=== PATIENT | female | born 1975 | race Hispanic/Latino ===

== ENCOUNTER 2021-05-05 11:12 | Inpatient (IN) | payer OTHER ==
[~2021-05-05] VITALS: Ht 167.6 cm; Wt 76.2 kg
[2021-05-05 12:10] LABS: HEMOGLOBIN 8.7 g/dl (12.0-16.0); IMMATURE GRANULOCYTES 0.6 % (0.0-5.0); MEAN CELL VOLUME 83.3 fL CALC (80.0-100.0); MEAN CORPUSCULAR HGB 26.9 pG CALC (26.0-32.0); MEAN CORPUSCULAR HGB CONC 32.2 g/dL CAL (32.0-36.0); NEUT# 21.5 thou/uL (2.00-7.15); RED BLOOD COUNT 3.24 mill/uL (4.20-5.60); RED CELL DISTRI WIDTH 15.6 % (11.5-15.5)
[2021-05-05 12:20] LABS: ALBUMIN 2.4 g/dL (3.2-5.0); BILIRUBIN, TOTAL 0.3 mg/dL (0.0-1.4); CREATININE 1.6 mg/dL (0.5-1.0); POTASSIUM 3.2 mmol/l (3.5-5.1)
[2021-05-05 15:33] VITALS: BP 139/71
[2021-05-05 16:13] LABS: CREATININE 1.5 mg/dL (0.5-1.0); POTASSIUM 2.8 mmol/l (3.5-5.1)
[2021-05-05 19:00] VITALS: BP 99/56
[2021-05-06] VITALS (10 sets, daily range): BP systolic 121–171; BP diastolic 66–85
[2021-05-06 05:21] LABS: MEAN CELL VOLUME 86.6 fL CALC (80.0-100.0); MEAN CORPUSCULAR HGB 27.3 pG CALC (26.0-32.0); MEAN CORPUSCULAR HGB CONC 31.6 g/dL CAL (32.0-36.0); RED BLOOD COUNT 2.38 mill/uL (4.20-5.60); RED CELL DISTRI WIDTH 15.9 % (11.5-15.5)
[2021-05-06 05:24] LABS: CREATININE 1.5 mg/dL (0.5-1.0); MAGNESIUM 1.6 mg/dL (1.6-2.3); POTASSIUM 3.3 mmol/l (3.5-5.1)
[2021-05-06 05:38] LABS: HEMATOCRIT 20.6 % (37.0-47.0); HEMOGLOBIN 6.5 g/dl (12.0-16.0)
[2021-05-06] MEDS ORDERED: LANTUS100 UNIT SC (09:56)
[2021-05-06] MEDS ORDERED: HUMALOG100 UNIT/M SC (09:56)
[2021-05-07] VITALS (7 sets, daily range): BP systolic 149–196; BP diastolic 78–92
[2021-05-07 04:52] LABS: HEMATOCRIT 22.7 % (37.0-47.0); HEMOGLOBIN 7.3 g/dl (12.0-16.0); IMMATURE GRANULOCYTES 0.8 % (0.0-5.0); MEAN CELL VOLUME 82.8 fL CALC (80.0-100.0); MEAN CORPUSCULAR HGB 26.6 pG CALC (26.0-32.0); MEAN CORPUSCULAR HGB CONC 32.2 g/dL CAL (32.0-36.0); NEUT# 11.49 thou/uL (2.00-7.15); RED BLOOD COUNT 2.74 mill/uL (4.20-5.60)
[2021-05-07 05:18] LABS: CREATININE 1.2 mg/dL (0.5-1.0); POTASSIUM 3.2 mmol/l (3.5-5.1)
[2021-05-08] VITALS (7 sets, daily range): BP systolic 141–191; BP diastolic 66–91
[2021-05-08 05:26] LABS: HEMATOCRIT 24.1 % (37.0-47.0); HEMOGLOBIN 7.4 g/dl (12.0-16.0); MEAN CELL VOLUME 84.9 fL CALC (80.0-100.0); MEAN CORPUSCULAR HGB 26.1 pG CALC (26.0-32.0); MEAN CORPUSCULAR HGB CONC 30.7 g/dL CAL (32.0-36.0); RED BLOOD COUNT 2.84 mill/uL (4.20-5.60); RED CELL DISTRI WIDTH 15.9 % (11.5-15.5)
[2021-05-08 05:40] LABS: ANION GAP 9 (6-22 (CALC)); BUN 14 mg/dL (7-17); BUN/CREATININE RATIO 15 (12-20 (CALC)); CARBON DIOXIDE 17 mmol/l (22-30); CHLORIDE 111 mmol/l (95-108); GFR 60 ML/MIN (>=60 (CALC)); GFR FOR AFR.AMER. > 60 ML/MIN (>=60 (CALC)); MAGNESIUM 1.6 mg/dL (1.6-2.3); POTASSIUM 2.9 mmol/l (3.5-5.1); SODIUM 134 mmol/l (137-146)
[2021-05-09] VITALS (12 sets, daily range): BP systolic 105–193; BP diastolic 56–93
[2021-05-09 06:26] LABS: ANION GAP 8 (6-22 (CALC)); BUN 16 mg/dL (7-17); BUN/CREATININE RATIO 15 (12-20 (CALC)); CARBON DIOXIDE 17 mmol/l (22-30); CHLORIDE 111 mmol/l (95-108); GFR 60 ML/MIN (>=60 (CALC)); GFR FOR AFR.AMER. > 60 ML/MIN (>=60 (CALC)); MAGNESIUM 1.9 mg/dL (1.6-2.3); SODIUM 132 mmol/l (137-146)
[2021-05-09 06:38] LABS: POTASSIUM 3.5 mmol/l (3.5-5.1)
[2021-05-09 06:48] LABS: HEMATOCRIT 23.9 % (37.0-47.0); HEMOGLOBIN 7.4 g/dl (12.0-16.0); MEAN CELL VOLUME 85.1 fL CALC (80.0-100.0); MEAN CORPUSCULAR HGB 26.3 pG CALC (26.0-32.0); RED BLOOD COUNT 2.81 mill/uL (4.20-5.60)
[2021-05-10] VITALS (13 sets, daily range): BP systolic 111–190; BP diastolic 63–85
[2021-05-10 05:03] LABS: HEMATOCRIT 22.7 % (37.0-47.0); HEMOGLOBIN 7.1 g/dl (12.0-16.0); MEAN CELL VOLUME 84.1 fL CALC (80.0-100.0); MEAN CORPUSCULAR HGB 26.3 pG CALC (26.0-32.0); MEAN CORPUSCULAR HGB CONC 31.3 g/dL CAL (32.0-36.0); RED BLOOD COUNT 2.7 mill/uL (4.20-5.60); RED CELL DISTRI WIDTH 15.9 % (11.5-15.5)
[2021-05-10 05:14] LABS: CREATININE 1.2 mg/dL (0.5-1.0); MAGNESIUM 1.9 mg/dL (1.6-2.3); POTASSIUM 3.4 mmol/l (3.5-5.1)
[2021-05-11] VITALS (9 sets, daily range): BP systolic 141–185; BP diastolic 72–94
[2021-05-11 05:42] LABS: HEMATOCRIT 22.5 % (37.0-47.0); HEMOGLOBIN 7.1 g/dl (12.0-16.0); MEAN CELL VOLUME 83.3 fL CALC (80.0-100.0); MEAN CORPUSCULAR HGB 26.3 pG CALC (26.0-32.0); MEAN CORPUSCULAR HGB CONC 31.6 g/dL CAL (32.0-36.0); RED BLOOD COUNT 2.7 mill/uL (4.20-5.60); RED CELL DISTRI WIDTH 16.2 % (11.5-15.5)
[2021-05-11 06:17] LABS: CREATININE 1.2 mg/dL (0.5-1.0); MAGNESIUM 1.9 mg/dL (1.6-2.3); POTASSIUM 3.7 mmol/l (3.5-5.1)
[2021-05-12] VITALS (10 sets, daily range): BP systolic 131–193; BP diastolic 70–90
[2021-05-12 05:22] LABS: HEMATOCRIT 20.3 % (37.0-47.0); MEAN CELL VOLUME 86.4 fL CALC (80.0-100.0); MEAN CORPUSCULAR HGB 27.2 pG CALC (26.0-32.0); MEAN CORPUSCULAR HGB CONC 31.5 g/dL CAL (32.0-36.0); RED BLOOD COUNT 2.35 mill/uL (4.20-5.60); RED CELL DISTRI WIDTH 16.4 % (11.5-15.5)
[2021-05-12 05:33] LABS: HEMOGLOBIN 6.4 g/dl (12.0-16.0)
[2021-05-12 05:49] LABS: ANION GAP 7 (6-22 (CALC)); BUN 16 mg/dL (7-17); BUN/CREATININE RATIO 14 (12-20 (CALC)); CARBON DIOXIDE 19 mmol/l (22-30); CHLORIDE 111 mmol/l (95-108); CREATININE 1.1 mg/dL (0.5-1.0); GFR 54 ML/MIN (>=60 (CALC)); GFR FOR AFR.AMER. > 60 ML/MIN (>=60 (CALC)); POTASSIUM 3.7 mmol/l (3.5-5.1); SODIUM 134 mmol/l (137-146)
[2021-05-12] MEDS ORDERED: AMLODIPINE BESYL5 MG PO (14:13)
[2021-05-12] MEDS ORDERED: LISINOPRIL20 M1 PO (14:13)
[2021-05-12] MEDS ORDERED: AMOX/K CLAV875 M1 PO (14:16)
[2021-05-12] MEDS ORDERED: PERCOCET1 TA4 PO (14:29)
[2021-05-13 04:00] VITALS: BP 174/79
[2021-05-13 07:30] VITALS: BP 162/82
[2021-05-13 08:47] VITALS: BP 162/82
== END 2021-05-13 09:28 | disposition home or self-care (01) | DRG 853 ==
LOC: ED 11:12 → ED-I 12:20 → ED 12:40 → MS2 12:41
PROVIDERS: Emergency Medicine; Nurse Practitioner; Surgery; ADMIT Hospitalist; ATTEND Hospitalist
PROC: 0Y6Y0Z0 Detachment at Left 5th Toe, Complete, Open Approach (ICD-10-PCS; principal; 2021-05-06)
PROC: 0JBR0ZZ Excision of Left Foot Subcutaneous Tissue and Fascia, Open Approach (ICD-10-PCS; 2021-05-06)
PROC: 30233N1 Transfusion of Nonautologous Red Blood Cells into Peripheral Vein, Percutaneous Approach (ICD-10-PCS; 2021-05-06)
PROC: 0J9R0ZZ Drainage of Left Foot Subcutaneous Tissue and Fascia, Open Approach (ICD-10-PCS; 2021-05-10)
PROC: 0J9P0ZZ Drainage of Left Lower Leg Subcutaneous Tissue and Fascia, Open Approach (ICD-10-PCS; 2021-05-10)
PROC: 30233N1 Transfusion of Nonautologous Red Blood Cells into Peripheral Vein, Percutaneous Approach (ICD-10-PCS; 2021-05-12)
DX: A41.9 Sepsis, unspecified organism (principal); A48.0 Gas gangrene; M72.6 Necrotizing fasciitis; N17.9 Acute kidney failure, unspecified; E11.52 Type 2 diabetes mellitus with diabetic peripheral angiopathy with gangrene; L03.116 Cellulitis of left lower limb; R65.20 Severe sepsis without septic shock; I12.9 Hypertensive chronic kidney disease with stage 1 through stage 4 chronic kidney disease, or unspecified chronic kidney disease; E11.628 Type 2 diabetes mellitus with other skin complications; E11.22 Type 2 diabetes mellitus with diabetic chronic kidney disease; N18.9 Chronic kidney disease, unspecified; D50.0 Iron deficiency anemia secondary to blood loss (chronic); F41.9 Anxiety disorder, unspecified; B95.4 Other streptococcus as the cause of diseases classified elsewhere; Z79.4 Long term (current) use of insulin; Z89.511 Acquired absence of right leg below knee; Z87.891 Personal history of nicotine dependence; Z20.822 Contact with and (suspected) exposure to COVID-19
CPT/HCPCS: J0131; J0692; J1756; P9016; Q3014

== ENCOUNTER 2022-04-20 08:56 | Day surgery (SDC) | payer OTHER ==
[~2022-04-20] VITALS: Ht 167.6 cm; Wt 72.6 kg
[~2022-04-20 08:56] MED LIST: ALL DAY10 MG PO; AMLODIPINE BESYL5 MG PO; AMOX/K CLAV875 M1 PO; BACTRIM DS1 TAB PO; CRESTOR10 MG PO; FERROUS SULF325 M2 PO; HUMALOG100 UNIT/M SC; LANTUS100 UNIT SC; LISINOPRIL20 M1 PO; OMEPRAZOLE20 MG PO; PERCOCET 5/321 COMBO PO; PERCOCET1 TA4 PO; [UNRECOGNIZED DRUG - OTHER]
[2022-04-20] MEDS ORDERED: PERCOCET 5/321 COMBO PO (11:48)
[2022-04-20 13:14] VITALS: BP 190/84
== END 2022-04-20 12:20 | disposition home or self-care (01) | DRG 617 ==
LOC: ORM 08:56
PROVIDERS: ATTEND Surgery
PROC: 0Y6W0Z0 Detachment at Left 4th Toe, Complete, Open Approach (ICD-10-PCS; principal; 2022-04-20)
DX: E11.69 Type 2 diabetes mellitus with other specified complication (principal); M86.672 Other chronic osteomyelitis, left ankle and foot; E11.51 Type 2 diabetes mellitus with diabetic peripheral angiopathy without gangrene; E11.621 Type 2 diabetes mellitus with foot ulcer; L97.529 Non-pressure chronic ulcer of other part of left foot with unspecified severity; I10 Essential (primary) hypertension; Z89.611 Acquired absence of right leg above knee

== ENCOUNTER 2022-06-06 19:07 | Emergency (ER) | payer OTHER ==
[~2022-06-06] VITALS: Ht 167.6 cm; Wt 71.3 kg
[2022-06-06 19:59] VITALS: BP 135/72
[2022-06-06] MEDS ORDERED: AMLODIPINE BESY10 MG PO (20:12)
[2022-06-06] MEDS ORDERED: LISINOPRIL10 MG PO (20:12)
[2022-06-06 20:15] VITALS: BP 121/66
[2022-06-06] MEDS ORDERED: KEFLEX500 MG PO (20:28)
[2022-06-06] MEDS ORDERED: BACTRIM DS1 TAB PO (20:28)
[2022-06-06] MEDS ORDERED: TRAMADOL HYDROC50 M1 PO (20:28)
[2022-06-06 20:30] VITALS: BP 143/76
[2022-06-06 20:45] VITALS: BP 133/88
[2022-06-06 20:50] VITALS: BP 133/88
== END 2022-06-06 20:50 | disposition home or self-care (01) | DRG 603 ==
LOC: ED 19:07
DX: L03.811 Cellulitis of head [any part, except face] (principal)